=== PATIENT | male | born 1995 | race Caucasian/White ===

== ENCOUNTER 2023-06-06 09:26 | Emergency (ER) | payer MEDICAID, SELFPAY ==
[2023-06-06 09:33] VITALS: BP 128/78; BP 157/112; PULSE 120; PULSE 129; RESP 18; TEMP 36.8; O2SAT 95; O2SAT 97; BMI 26.6
[2023-06-06 09:41] VITALS: BP 157/112; PULSE 129; RESP 18; TEMP 36.8; O2SAT 97
--- NOTE | 2023-06-06 09:44 | PC.NURSE ---
Pt awake, alert and answering some questions. Breathing even and unlabored. Skin warm and dry. Pt endorses drinking alot of alcohol this morning, unknown exact amount. Pt reports he tried to go to class at [facility] today but an ambulance was called. Pt denies any drug use, SI/HI, or pain. Pt resting in bed, no acute distress noted.
--- NOTE | 2023-06-06 10:37 | PC.NURSE ---
pt calm and cooperative at this time, pt calling friend on his cell phone. no outward distress noted.
--- NOTE | 2023-06-06 10:51 | ED_ITS ---
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 Patient admitted to drinking Lots of alcohol this morning patient was going to his school at [facility] passed out and found by bystander, patient now is awake, like to be discharged, declined any head injury , no neck pain, no CP, no SOB, no SI, no HI, no other substance abuse. Review of Systems Review of Systems: All other systems are reviewed and are negative Constitutional: Reports as per HPI and Reports no additional constitutional complaints Eyes: Reports as per HPI and Reports no additional eye complaints Reports system reviewed and no additional complaints, except as documented Cardiovascular: Reports as per HPI and Reports no additional cardiovascular complaints Respiratory: Reports as per HPI and Reports no additional respiratory complaints Gastrointestinal: Reports as per HPI and Reports no additional gastrointestinal complaints Genitourinary: Reports no additional female genitourinary complaints Musculoskeletal: Reports no additional musculoskeletal complaints Skin/Breast: Reports system reviewed and no additional complaints, except as docu Psychiatric: Reports no additional psychiatric complaints Endocrine: Reports no additional endocrine complaints Hematologic/Lymphatic: Reports no additional hematologic/lymphatic complaints Allergic/Immunologic: Reports no additional allergic/immunologic complaints Reports system reviewed and no additional complaints, except as documented and Reports Abnormal speech present [facility] Social History Social History Alcohol intake: current Smoked in Last 30 Days: No Use of substances other than those prescribed or required for medical reasons: No Advance Directives: No Advance Directives Information Provided: No Physical Exam ED Vital Signs: Vital Signs - 24 hr 06/06/23 09:33 06/06/23 09:41 Temperature 98.2 F 98.2 F Pulse Rate 129 H 129 H Respiratory Rate 18 18 Blood Pressure 157/112 H 157/112 H Pulse Oximetry 97 97 Oxygen Delivery Method Room Air Room Air BMI result Body Mass Index 26.6 Vital signs have been reviewed and appear to be correct. Blood pressure elevated. Heart rate elevated. Respiratory rate normal. Temperature normal. Oxygen saturation normal. Appearance: Alert. Oriented X3. No acute distress. Head: Normal external exam. Normocephalic. Atraumatic. No Gonzalez signs noted. No raccoon eyes noted Eyes: PERRLA. EOMI. Conjunctiva and sclera normal. Eyelids normal. ENT: TM's Normal. Pharynx normal. Uvula midline. Moist mucous membranes. No trismus noted. No drooling noted. No muffled voice noted. Neck: Normal inspection. Neck supple. FROM. No adenopathy. Thyroid Normal. No meningeal signs. No neck mass noted. CVS: Normal heart rate and rhythm. Heart sound normal. No murmurs noted. Pulses normal throughout. Respiratory: No respiratory distress. Painless inspiration. Breath sounds normal. No wheezes/rales/rhonchi noted. Chest nontender. No accessory muscle usage noted or decreased air movement noted. Abdomen: Soft and nontender. Bowel sounds normal in all 4 quadrants. No distention noted. No organomegaly noted. No visible injury noted. Back: No CVA tenderness. Full range of motion noted. Skin: Skin warm and dry. Normal skin color. Normal skin turgor. No rashes/lesions/lacerations noted. Extremities: No lower extremity edema. Extremities exhibit normal range of motion. Extremities nontender. Neuro: Oriented X 3. Cranial nerve exam: II-XII are grossly intact No motor deficit. No sensory deficit. Reflexes normal. Course Reevaluation(s) Reevaluation #1: Patient is sober, awake, oriented x3, able to ambulate unsteady gait, no SI, no HI, patient has a sober adult personal to drive him home. Will discharge. Time: 11:24 Medical Decision Making Differential Diagnosis Differential Diagnoses: The differential diagnosis associated with the presentation includes ( Alcohol intoxication, head injury.) Admission/Observation Consideration of admission/observation: Escalation of care including admission/observation considered Lab Data MDM Lab Attestation statement: I reviewed the patient's lab results. Discharge Plan Discharge Clinical Impression: Alcoholic intoxication Patient Disposition: Home, Self-Care Instructions: Alcohol Intoxication (ED)
== END 2023-06-06 11:31 | disposition home or self-care (01) ==
PROVIDERS: Emergency Provider Emergency Medicine
DX: F10.129 Alcohol abuse with intoxication, unspecified (principal); Y90.9 Presence of alcohol in blood, level not specified
CPT/HCPCS: 99283; 99284